=== PATIENT | female | born 1980 | race Caucasian/White ===

== ENCOUNTER 2020-02-09 18:25 | Emergency (ER) | payer OTHER, MEDICAID, SELFPAY ==
[2020-02-09 18:46] VITALS: BP 125/88; PULSE 85; RESP 12; TEMP 36.9; O2SAT 100
[2020-02-09 19:06] LABS: COVID19 -Nasal RAPID Negative (Negative)
--- NOTE | 2020-02-09 19:13 | ED.RECABL ---
HPI - Recheck/Abnormal Lab/Rx General Chief Complaint: Recheck/Abnormal Lab/Rx Stated Complaint: covid exposure Time Seen by Provider: 02/09/20 18:25 Source: patient Mode of arrival: Ambulatory Limitations: no limitations History of Present Illness HPI narrative: Patient is a 40-year-old female without symptoms who 8 days ago was exposed to an individual who was in her home without a mask who 4 days after this encounter tested positive for COVID-19. The individual who tested positive for COVID-19 had no symptoms. Patient states that she has a young grandchild so she thought she should come and get tested. Review of Systems Constitutional Constitutional: Denies fever(s) and Denies headache(s) ENT Ears, Nose, Mouth, and Throat: Denies headache(s) Cardiovascular Cardiovascular: Denies chest pain and Denies dyspnea Respiratory Respiratory: Denies dyspnea Gastrointestinal Gastrointestinal: Denies nausea and Denies vomiting Musculoskeletal Musculoskeletal: Denies myalgias Integumentary/Breasts Skin/Breast: Denies rash Neurologic Neurologic: Denies behavioral changes and Denies headache(s) Psychiatric Psychiatric: Denies behavioral changes Allergic/Immunologic Allergic/Immunologic: Denies urticaria Patient History Medical History Healthy adult Social History Smoking Status: Never smoker Smoking Status: Never smoker alcohol intake frequency: 0-2 drinks per day Substance Use Type: does not use Exam Initial Vital Signs Initial Vital Signs: Vital Signs Temperature 98.5 F 02/09/20 18:46 Pulse Rate 85 02/09/20 18:46 Respiratory Rate 12 02/09/20 18:46 Blood Pressure 125/88 02/09/20 18:46 Pulse Oximetry 100 02/09/20 18:46 Const General: cooperative and comfortable Limitations: mental status not altered HENMT Head: normal to inspection and normocephalic Resp Effort & Inspection: normal respiratory effort Cardio Rate: regular rate Skin Rashes: no rashes Neuro General: patient alert and patient awake Speech: speech normal Psych Appearance: grossly normal and well kempt Course Orders Ordered: ED Orders 02/09/20 18:27 COVID19 Stat Vital Signs Vital signs: Vital Signs - 8 hr 02/09/20 18:46 Temperature 98.5 F Pulse Rate 85 Respiratory Rate 12 Blood Pressure 125/88 Pulse Oximetry 100 MDM - Recheck/Abnormal Lab/Rx Lab Data Attestation: I reviewed the patient's lab results. Labs: Lab Results 02/09/20 Range/Units 18:45 SARS-CoV-2 (PCR) Negative (Negative) [facility] Narrative Medical decision making narrative: Patient is negative for COVID-19. She states that her exposure was 8 days ago. I would expect that her test would be positive by today however I did inform her that the current CDC guidelines are that she quarantine herself for 14 days after a potential exposure. No further workup needed in the emergency department. She was given return precautions and follow-up instructions. She expressed understanding and agreement. Discharge Plan Departure Patient Disposition: Home Clinical Impression: Encounter for laboratory testing for COVID-19 virus Instructions: Can COVID-19 be prevented? Activity Restrictions/Additional Instructions: It is current CDC guidelines that you quarantine yourself for 14 days after an exposure. Your COVID-19 test was negative today and this is reassuring. Contact your primary provider for follow-up. Return to the emergency department for any new or worsening symptoms
[2020-02-09 19:21] VITALS: BP 128/78; PULSE 83; RESP 12; O2SAT 100
== END 2020-02-09 19:24 | disposition home or self-care (01) ==
PROVIDERS: Emergency Provider Emergency Medicine
DX: Z20.822 Contact with and (suspected) exposure to COVID-19 (principal)
CPT/HCPCS: 87635; 99281; 99282